=== PATIENT | female | born 1965 | race Caucasian/White ===

== ENCOUNTER 2021-11-19 08:59 | Outpatient (CLI) | payer BC | END 2021-11-19 09:00 | disposition home or self-care (01) | LOC: BICMAMMO 08:59 | PROVIDERS: ATTEND Family Medicine | DX: Z12.31 Encounter for screening mammogram for malignant neoplasm of breast (principal); Z12.2 Encounter for screening for malignant neoplasm of respiratory organs; F17.210 Nicotine dependence, cigarettes, uncomplicated; Z80.3 Family history of malignant neoplasm of breast | CPT/HCPCS: 71271; 77063; 77067 ==

== ENCOUNTER 2022-06-21 12:05 | Outpatient (CLI) | payer BC ==
[~2022-06-21 12:05] MED LIST: Iopamidol 370 76% 100 ML VIAL ONE
== END 2022-06-21 12:06 | disposition home or self-care (01) ==
LOC: CT 12:05
PROVIDERS: ATTEND Family Medicine
DX: I65.23 Occlusion and stenosis of bilateral carotid arteries (principal); R42 Dizziness and giddiness; R91.1 Solitary pulmonary nodule; I67.2 Cerebral atherosclerosis; I70.8 Atherosclerosis of other arteries
CPT/HCPCS: 70496; 70498; Q9967

== ENCOUNTER 2022-07-01 12:35 | Outpatient (CLI) | payer BC | END 2022-07-01 12:36 | disposition home or self-care (01) | LOC: BICCT 12:35 | PROVIDERS: ATTEND Family Medicine | DX: R91.8 Other nonspecific abnormal finding of lung field (principal) | CPT/HCPCS: 71260 ==

== ENCOUNTER 2023-02-07 13:52 | Outpatient (CLI) | payer BC | END 2023-02-07 13:53 | disposition home or self-care (01) | LOC: BICMAMMO 13:52 | PROVIDERS: ATTEND Family Medicine | DX: Z12.31 Encounter for screening mammogram for malignant neoplasm of breast (principal); Z80.3 Family history of malignant neoplasm of breast | CPT/HCPCS: 77063; 77067 ==